=== PATIENT | male | born 1975 | race Caucasian/White ===

== ENCOUNTER 2016-05-25 09:25 | Emergency (ER) | payer OTHER ==
[2016-05-25 09:33] VITALS: RESP 18; TEMP 97.7
--- NOTE | 2016-05-25 10:02 | DX ---
Right Ankle, Three Views History: Pain, post trauma. Fall today. Findings: There is an acute spiral fracture of the distal fibula without significant angulation or di splacement. There is a transverse caudally and anteriorly displaced fracture through the base of the medial malleolus. Caudal displacement is approximately 10 mm. The talar dome remains intact. There is an ankle joint effusion. Overall mineralization is normal. The subtalar joint looks normal. There is diffuse soft tissue swelling greatest laterally.. Impression: Unstable bimalleolar fracture..
[2016-05-25] MEDS ORDERED: oxyCODONE IR 5 MG TAB ONE (10:29)
--- NOTE | 2016-05-25 10:34 | EDPHY ---
H & P Stated Complaint: tripped on ice fell inj to r ankle Source: Patient, Family Exam Limitations: No limitations - Personal History Current Tetanus/Diphtheria Vaccine: Yes - Medical/Surgical History Hx Asthma: No Hx Chronic Respiratory Disease: No Hx Diabetes: No Hx Cardiac Disease: No Hx Renal Disease: No Hx Cirrhosis: No Hx Alcoholism: No Hx HIV/AIDS: No Hx Splenectomy or Spleen Trauma: No Other PMH: denies - Social History Smoking Status: Never smoked HPI/ROS: CHIEF COMPLAINT: Fall, right ankle pain HISTORY OF PRESENT ILLNESS: slipped on the ice today and injured his right ankle. He is not entirely sure what happened, but has significant pain on the right ankle medial and lateral. He has no ipsilateral knee, proximal fibula, last, foot or heel pain. Pain is tolerable at rest and is declining pain medication. He was unable to bear weight on it. He has no use of blood thinners. No previous medical problems orthopedic injuries. Unable to ambulate. No injuries elsewhere. No loss conscious. No other associated complaints or modifying factors REVIEW OF SYSTEMS: Ten systems reviewed and are negative unless otherwise noted in the HPI EXAMINATION General Appearance: Alert, no distress Head: normocephalic, atraumatic Eyes: Pupils equal and round, no conjunctival pallor or injection Neck: Normal inspection. No bony tenderness or injuries Respiratory: No dyspnea or retractions. No distress Cardiovascular: Pulses normal throughout with symmetric 2+ DP and PT. Brisk cap refill Gastrointestinal: No distention Back: non-tender, no bony abnormalities Neurological: A&O, sensory symmetric, strength symmetric in all limbs Skin: Warm and dry, no rash. Ecchymosis and edema to the right ankle Extremities: significant edema, ecchymosis and tenderness to the right ankle on by malleolar surface. There is no heel tenderness. No midfoot tenderness. Range of motion not tested secondary to deformity. Neurovascular intact distal to the ankle injury with brisk cap refill. There is no proximal fibular tenderness. No foot tenderness. Psychiatric: Mood and affect normal MDM: 10:32 a.m. Mechanical fall with right ankle fracture. This is read as a bimalleolar. There is no injury to the talar dome. he remains neurovascular intact distally. No dislocation. I have discussed the case with the on-call orthopedist Dr. Contreras, he has requested a Nelson Santacruz splint, crutches and he will see the patient in the office tomorrow. He plans for surgery on afternoon. I discussed these findings with the patient, and I showed him his x- rays. They will follow up with him tomorrow morning. He is strict nonweightbearing instructions on the right lower extremity of any kind. He was made aware of this and he knows this is going to require surgical intervention. He is also made aware that should he bear weight on this and would likely dislocated, says that taking any emergent intervention. Patient will be discharged home in stable condition with pain medication, crutches and outpatient follow-up instructions. ED Precautions: Worsening pain. Erythema, edema, cyanosis, pallor, paresthesia or anesthesia. SUPERVISION:This patient was independently evaluated without the aide of supervising physician. (Edvin Fuller) Constitutional: Initial Vital Signs Temperature (C) 36.5 C 05/25/16 09:30 Heart Rate 80 05/25/16 09:30 Respiratory Rate 18 05/25/16 09:30 Blood Pressure 120/80 05/25/16 09:30 O2 Sat (%) 97 05/25/16 09:30 O2 Delivery Mode Room Air Allergies/Adverse Reactions: No Known Allergies Allergy (Unverified 05/25/16 09:30) Home Medications: Medication Instructions Recorded Cyclobenzaprine [Flexeril 10 MG 10 mg PO TID PRN #15 tab 05/25/16 (*)] oxyCODONE HCL/ACETAMINOPHEN 1 each PO Q4-6PRN PRN #20 tablet 05/25/16 [Percocet 5-325 mg Tablet] Medical Decision Making Other Provider: The patient was evaluated and managed by the Physician Sourcing Engineer/ Nurse Practitioner. I discussed the patient's presentation and course with the midlevel provider with them and agree with the evaluation. I reviewed the patient's x-rays. My co-signature indicates that I have reviewed this chart and I agree with the findings and plan of care as documented. I am the secondary supervising physician. (Suzie Michaels) - Data Points Medications Given: Discontinued Medications Oxycodone HCl (Oxycodone Ir) 5 mg PO EDNOW ONE Stop: 05/25/16 10:38 Last Admin: 05/25/16 10:39 Dose: 5 mg Departure - Departure Disposition: Home, Routine, Self-Care Clinical Impression: Bimalleolar fracture of right ankle, Fall Condition: Good Instructions: Ankle Fracture (ED) Additional Instructions: Follow-up with Orthopedics for definitive care. Strict nonweightbearing instructions for the right lower extremity. Return to the ER for numbness, tingling, paralysis, pallor or erythema of the foot. Referrals: Shelby Contreras MD [Medical Doctor] - As per Instructions Prescriptions: Cyclobenzaprine [Flexeril 10 MG (*)] 10 mg PO TID PRN #15 tab PRN Reason: Spasms oxyCODONE HCL/ACETAMINOPHEN [Percocet 5-325 mg Tablet] 1 each PO Q4-6PRN PRN # 20 tablet PRN Reason: Pain, Moderate
[2016-05-25] MEDS ORDERED: oxyCODONE IR 5 MG TAB PO ONE (10:37)
[2016-05-25 11:20] VITALS: BP 142/86; PULSE 78; O2SAT 95
== END 2016-05-25 11:20 | disposition home or self-care (01) ==
PROC: 2W3QX1Z Immobilization of Right Lower Leg using Splint (ICD-10-PCS; principal; 2016-05-25)
DX: S82.841A Displaced bimalleolar fracture of right lower leg, initial encounter for closed fracture (principal); W00.0XXA Fall on same level due to ice and snow, initial encounter